=== PATIENT | male | born 1965 | race African-American/Black ===

== ENCOUNTER → 2017-02-13 17:42 | Emergency (ER) | payer OTHER ==
[~2017-02-13 17:42] MED LIST: DOXYCYCLINE HY100 M2 PO; MEDROL DOSEPAK4 MG PO; ROBITUSSIN A-C-S1 ML PO
== END | disposition left against medical advice (07) ==
LOC: CED 17:42
DX: Z53.21 Procedure and treatment not carried out due to patient leaving prior to being seen by health care provider (principal)